=== PATIENT | female | born 1995 | race Caucasian/White ===

== ENCOUNTER 2023-07-15 01:43 | Emergency (ER) | payer SELFPAY ==
[2023-07-15 01:57] VITALS: BP 111/57; PULSE 92
[2023-07-15 02:49] LABS: CORONAVIRUS COVID-19 NAA NEGATIVE (NEGATIVE); INFLUENZA A NAA NEGATIVE (NEGATIVE)
[2023-07-15] MEDS ORDERED: Penicillin G Benzathine 1,200,000 Units/2 ML Syringe IM ONE (03:19)
== END 2023-07-15 03:35 | disposition home or self-care (01) ==
LOC: JD.ED 01:43
DX: J02.0 Streptococcal pharyngitis (principal); Z20.822 Contact with and (suspected) exposure to COVID-19
CPT/HCPCS: 0240U; 87651; 96372; 99283; J0561

== ENCOUNTER 2024-04-04 13:57 | Emergency (ER) | payer SELFPAY ==
[2024-04-04 14:08] VITALS: BP 122/82; PULSE 69
[2024-04-04] MEDS ORDERED: cefTRIAXone 1 GM, Lidocaine 1% 2.1 ML IM ONE (14:38)
== END 2024-04-04 15:05 | disposition left against medical advice (07) ==
LOC: JD.ED 13:57
DX: J03.90 Acute tonsillitis, unspecified (principal); Z79.899 Other long term (current) drug therapy
CPT/HCPCS: 87651-QW; 99283

== ENCOUNTER 2025-02-13 08:28 | Emergency (ER) | payer MEDICAID ==
[2025-02-13 08:45] VITALS: BP 112/66
[2025-02-13] MEDS ORDERED: Sodium Chloride 0.9% 10 ML Syringe FLUSH PRN (08:56)
[2025-02-13] MEDS: Sodium Chloride 0.9% 1,000 ML IV STA (09:03)
[2025-02-13] MEDS: Ketorolac 30 MG/ML SDV IVPUSH ONE (09:03)
[2025-02-13] MEDS: Ondansetron 4 MG/2 ML SDV IVPUSH ONE ×2 (09:03→10:03)
[2025-02-13 09:05] LABS: BASOPHILS ABSOLUTE AUTO 0.1 K/mm3 (0.0-0.2); BASOPHILS PERCENT AUTO 0.4 % (0.0-1.0); EOSINOPHILS PERCENT AUTO 0.1 % (0.0-6.0); HEMATOCRIT 40.3 % (37.0-47.0); HEMOGLOBIN 13.3 gm/dl (12.0-16.0); IMMATURE GRAN ABSOLUTE AUTO 0.06 K/mm3 (0.00-0.05); IMMATURE GRAN PERCENT AUTO 0.4 % (0.0-0.4); LYMPHOCYTES ABSOLUTE AUTO 1.4 K/mm3 (1.0-4.8); LYMPHOCYTES PERCENT AUTO 8.8 % (24.0-44.0); MEAN CORPUSCULAR HEMOGLOBIN 31.1 pg (28.0-32.0); MEAN CORPUSCULAR VOLUME 94.2 fl (83.0-99.0); MEAN PLATELET VOLUME 9.3 fl (9.4-12.3); MONOCYTES ABSOLUTE AUTO 0.4 K/mm3 (0.0-0.8); MONOCYTES PERCENT AUTO 2.5 % (0.0-8.0); NEUTROPHILS ABSOLUTE AUTO 14.2 K/mm3 (1.8-7.7); NEUTROPHILS PERCENT AUTO 87.8 % (41.0-71.0); PLATELET COUNT,PLT 262 K/mm3 (150-400); RED BLOOD CELL COUNT 4.28 M/mm3 (4.10-5.30)
[2025-02-13 09:24] LABS: A/G RATIO 1.3 (1-2); ALBUMIN 4.4 g/dl (3.4-5.0); ANION GAP 20.6 (5-15); BILIRUBIN TOTAL 0.6 mg/dL (0.2-1.0); BUN/CREATININE RATIO 22.5 (14-18); CALCIUM 9.6 mg/dL (8.5-10.1); CREATININE 0.8 mg/dL (0.55-1.02); EST CRCL DRUG DOSING (CG) 87.13 mL/min; MAGNESIUM 1.7 mg/dL (1.8-2.4); POTASSIUM,K 3.6 mEq/L (3.5-5.1); PROTEIN TOTAL,TP 7.8 g/dl (6.4-8.2)
[2025-02-13] MEDS: Metoclopramide 10 MG/2 ML SDV IVPUSH ONE (09:42)
[2025-02-13] MEDS: diphenhydrAMINE 50 MG/ML SDV IVPUSH ONE (10:03)
[2025-02-13 11:49] VITALS: PULSE 74
== END 2025-02-13 11:25 | disposition home or self-care (01) ==
LOC: JD.ED 08:28
DX: K52.9 Noninfective gastroenteritis and colitis, unspecified (principal); F17.200 Nicotine dependence, unspecified, uncomplicated; Z79.899 Other long term (current) drug therapy
CPT/HCPCS: 36415; 80053; 83690; 83735; 84703; 85025; 96361; 96374; 96375; 96376; 99284; J1200; J1885; J2405; J2765; J7030; 99283